=== PATIENT | male | born 1960 | race African-American/Black ===

== ENCOUNTER 2019-11-22 12:25 | Outpatient (CLI) | payer BC, SELFPAY ==
[2019-11-27 11:59] LABS: Reference Lab Test Result Positive
== END 2019-11-22 12:26 | disposition home or self-care (01) ==
PROVIDERS: PCP Internal Medicine; Visit Provider Internal Medicine
DX: Z20.828 Contact with and (suspected) exposure to other viral communicable diseases (principal)
CPT/HCPCS: 36415; 86769